=== PATIENT | male | born 1930 | race Caucasian/White ===

== ENCOUNTER 2017-06-21 16:59 | Emergency (ER) | payer MEDICARE, OTHER ==
[~2017-06-21 16:59] MED LIST: BRIM5DRO10 BOTH_EYES; CARV12.52 PO; CELE-67 PO; CLOB50SO TP; CREST10T PO; FUR20 PO; LEVO75TA4 PO; LISI10TA PO; MAGN400T4 PO; OMEP40CA36 PO; PREG200C PO
[2017-06-21 17:24] VITALS: BP 144/65; PULSE 81; RESP 14; O2SAT 92
--- NOTE | 2017-06-21 17:38 | DRSVH ---
PROCEDURE: X-RAY CHEST ONE VIEW, PORTABLE ([id number]) INDICATIONS: cp TECHNIQUE: One view of the chest was acquired. COMPARISON: [facility], CR, XR CHEST 1VW (PORTABLE), 09/26/2016, 11:41. [facility], CR, XR CHEST 2VW, 10/27/2015, 9:17. FINDINGS: Surgical changes and devices: Cardiac pacemaking device and dual chamber leads appear normal, previou sly present. Lungs and pleura: No pleural effusions or pneumothorax. Lungs are chronically abnormal with a mild interstitial prominence likely reflecting chronic CHF sequela. Mediastinum: Mediastinal contours appear normal. Heart size is mildly enlarged. Bones and chest wall: No suspicious bony lesions. Overlying soft tissues appear unremarkable. IMPRESSION: Stable chronic CHF pattern. Pacemaking device and dual chamber leads normal. Dictated by: Papo Davalos M.D. on 06/21/2017 at 17:36 Approved by: Papo Davalos M.D. on 06/21/2017 at 17:36
--- NOTE | 2017-06-21 17:40 | ED.REPORT ---
HPI-General Illness Date of Service Jun 21, 2017 ED Provider: Kailash Galaviz MD Patient is an 87 year old male with a history of CHF, pacemaker and hypertension who presents to the ED via EMS complaining of chest pain onset 6 hours ago. He describes the pain as sharp, located in the left side of his chest and radiating into his left arm. The pain is worse with movement. He denies cough or fever. Per the patient's daughter, the patient grabbed his chest in pain and looked pale just prior to arrival. He describes the pain as sharp and the worst pain he has experienced. The pain is worse with bending and twisting. En route, the patient was given ASA and 2 nitros by EMS, which took most of his pain away. The patient's daughter also mentions that the patient had a fall 3 nights ago and hit the left side of his chest. The patient complains of left sided neck/trapezius pain, that he attributes to the fall. Patient denies history of heart attack or CAD. Nursing Notes Stated Complaint: CHEST PAIN Chief Complaint: Chest Pain Nursing Notes Reviewed: Yes Allergies: Coded Allergies: atenolol (Verified Allergy, Mild, 06/21/17) morphine (Verified Allergy, Mild, 06/21/17) niacin (Verified Allergy, Mild, 06/21/17) Scheduled Brimonidine Tartrate (Alphagan P) 5 Ml Drops 1 GTT BOTH_EYES BID Carvedilol (Carvedilol) 12.5 Mg Tablet 6.25 MG PO QAM Carvedilol (Carvedilol) 12.5 Mg Tablet 12.5 MG PO QPM Clobetasol Propionate (Clobetasol Propionate) 50 Ml Solution 50 ML TP BID Furosemide (Furosemide) 20 Mg Tab 20 MG PO QAM Levothyroxine (Levothyroxine) 75 Mcg Tablet 75 MCG PO DAILY Lidocaine (Lidoderm) 700 Mg Adh..patch 1 PATCH TP UD Lisinopril (Lisinopril) 10 Mg Tablet 10 MG PO QPM Magnesium Oxide (Magnesium Oxide) 400 Mg Tablet 400 MG PO DAILY Omeprazole (Omeprazole) 40 Mg Capsule.dr 40 MG PO DAILY Pregabalin (Lyrica) 200 Mg Capsule 200 MG PO BID Rosuvastatin Calcium (Crestor) 10 Mg Tablet 10 MG PO HS Scheduled PRN Celecoxib (Celecoxib) 200 Mg Capsule 200 MG PO BID PRN PRN For Pain General Time Seen by MD: 17:33 Chief Complaint Chest pain Hx Obtained From: Patient, Daughter Arrived By: Ambulance Sudden in Onset?: Yes Onset Occurred: 5 - 8 hours ago Symptom Duration: Since onset Location: : Chest Quality: Painful, Sharp Radiation: : Arm left Severity: Current: Moderate Similar Sx Previous: No Past Medical History Past Medical History Notes: Ciaio Lumite Injector: Herb Romero Past Medical History hiatial hernia arthritis kidney stones Reports: Congestive heart failure, Diabetes mellitus, Hyperlipidemia, Hypertension Past Surgical History cardiac stent knee and L hip replacement Gallbladder removal Reports: Appendectomy Reports: Pacemaker insertion Smoking History Former Smoker Social History Alcohol Use: Denies alcohol use Other Social History: Good social support Ambulatory Status Independent Review of Systems Full Review of Systems Constitutional: Denies: Fever Respiratory: Reports: Shortness of breath, Denies: Non-productive cough Cardiovascular: Reports: Chest pain Musculoskeletal: Reports: Extremity pain, Neck pain Complete sys rev & neg: except as marked. Physical Exam Vital Signs Vital Signs Date Time Temp Pulse Resp B/P Pulse Ox O2 Delivery O2 Flow Rate FiO2 06/21/17 19:46 76 16 159/87 96 Room Air 06/21/17 18:04 76 15 138/69 98 Nasal Cannula 2 06/21/17 17:24 81 14 144/65 92 Room Air 2 Initial VS: Reviewed General/Constitutional: Awake, Alert hard of hearing but answering questions appropriately Head / Eyes: Atraumatic, Normocephalic, PERRL, EOMI ENT: Atraumatic, Airway patent, Mucous membranes moist Neck: Atraumatic, Supple, Non-tender Respiratory / Chest: Atraumatic, Breath sounds NL, Breath sounds = bilat, No respiratory distress pacemaker in the left anterior chest wall, well healed overlying scar no reproducable pain to chest wall with palpation Cardiovascular: Heart rate NL, Regular rhythm, Heart sounds NL, No gallop, No murmurs, No rubs Abdomen: Atraumatic, Soft, Non-tender, No guarding, No rebound slightly distended no rigidity Lower Extremity / Pelvis / MS: Atraumatic, No swelling, Non-tender Skin: Atraumatic, Color NL, No rash, Warm, Dry Neurologic: Oriented X3, Speech NL non lateralizing neuro exam Interpretation & Diagnostics Lab Results Interpretation Result Diagram: 06/21/17 1738 06/21/17 1738 Test 06/21/17 17:38 White Blood Count 3.9th/mm3 (3.8-10.1) Red Blood Count 4.19mil/mm3 (4.40-5.80) Hemoglobin 12.2g/dL (13.8-17.2) Hematocrit 37.0% (41.0-50.0) Mean Corpuscular Volume 88.3fL (81-100) Mean Corpuscular Hemoglobin 29.1pg (27.0-35.0) Mean Corpuscular Hemoglobin Concent 33.0% (32.0-37.0) Red Cell Distribution Width 13.9% (12.3-15.4) Platelet Count 59bil/L (150-400) Neutrophils (%) (Auto) 58.7% (40-74) Lymphocytes (%) (Auto) 8.4% (14-46) Monocytes (%) (Auto) 29.9% (4-12) Eosinophils (%) (Auto) 1.5% (0-5) Basophils (%) (Auto) 0% (0-3) Sodium Level 135mEq/L (134-144) Potassium Level 4.6mEq/L (3.5-5.2) Chloride Level 99mEq/L (97-108) Carbon Dioxide Level 24mmol/L (18-29) Blood Urea Nitrogen 20mg/dL (8-27) Creatinine 0.99mg/dL (0.76-1.27) Estimat Glomerular Filtration Rate 76mL/min (>59) Glucose Level 97mg/dL (60-99) Calcium Level 8.1mg/dL (8.5-10.1) Magnesium Level 1.8mg/dL (1.6-2.6) Total Bilirubin 0.8mg/dL (0.0-1.2) Aspartate Amino Transf (AST/SGOT) 84U/L (0-50) Alanine Aminotransferase (ALT/SGPT) 81U/L (0-44) Alkaline Phosphatase 111U/L (25-160) Troponin T < 0.010ug/L (0.0-0.011) Total Protein 6.7g/dL (6.4-8.4) Albumin 3.6g/dL (3.4-5.0) Hold Ji Top Tube Received (Received) ECG Interpretation ECG Interpretation: atrial sensed ventricular paced complexes 79bpm Interpreted by: ED physician X-Ray Chest Interpretation Chest Xray Interpretation: IMPRESSION: Stable chronic CHF pattern. Pacemaking device and dual chamber leads normal. Dictated by: Papo Davalos M.D. on 06/21/2017 at 17:36 Approved by: Papo Davalos M.D. on 06/21/2017 at 17:36 Interpretation / Wet Read by: Interpret - Radiologist Re-Eval/Medical Decision Med Decision/Clinical Course Patient is an 87 year old male with a history of CHF, pacemaker and hypertension who presents to the ED via EMS complaining of chest pain onset 6 hours ago. He describes the pain as sharp, located in the left side of his chest and radiating into his left arm. The pain is worse with movement. He denies cough or fever. Per the patient's daughter, the patient grabbed his chest in pain and looked pale just prior to arrival. He describes the pain as sharp and the worst pain he has experienced. The pain is worse with bending and twisting. En route, the patient was given ASA and 2 nitros by EMS, which took most of his pain away. The patient's daughter also mentions that the patient had a fall 3 nights ago and hit the left side of his chest. The patient complains of left sided neck/trapezius pain, that he attributes to the fall. Patient denies history of heart attack or CAD. Emergency Department the patient is afebrile, hemodynamically stable with examination as above. EKG showed atrial sensed ventricular paced complexes, 79bpm unchanged from previous EKG on 09/27/16 CXR: Obtained, reviewed and interpreted by myself shows no evidence of infiltrates, effusions or pneumothorax. Cardiac and mediastinal silhouette normal. No bony or soft tissue abnormalities. Labs: CBC showed no leukocytosis, hematocrit of 37, CMP unremarkable besides a mild hypocalcemia of 8.1, mildly elevated transaminases, negative trop Because of the patient's pain is not entirely clear. Much of his presentation is suggestive of a musculoskeletal etiology though I cannot definitively rule out acute coronary syndrome based upon single EKG and troponin. My overall suspicion for pulmonary embolism is relatively low as he is without tachypnea, respiratory complaints, major recent pulmonary embolism risk factors or physical exam findings of DVT. The patient reports feeling better though has requested something that might help with his pain. I explained that the most likely diagnosis is that his pain is musculoskeletal though we cannot rule out other more concerning causes. I explained that the most safe course of the admission to the hospital for serial troponins and additional cardiac risk stratification. There is a long discussion with the patient and his family regarding goals of care. Given his advanced age he does not desire to be admitted to the hospital and would not desire aggressive intervention. He demonstrates decisional capacity and good insight into his condition. He wishes to be discharged. He has been prescribed lidocaine patches that he may apply to his chest or back for pain. He is advised to return should he change his mind and desire more comprehensive workup or should his symptoms worsen or fail to improve. Prior to discharge follow-up and return precautions were reviewed in detail with the patient who verbalized understanding and agreement with the plan. The patient was discharged in stable condition. Time of Eval: 18:42 Re-Evaluation/Progress Note: Patient states that the pain worsened when he tried to pull himself up to sit up. Discussed that we could not definitively rule out heart vs musculoskeletal if he is not admitted. Patient would like to go home. Discussed plan for discharge. Patient understands and agrees to plan. All questions were addressed. Counseled Regarding: Diagnosis, Lab results, Need for follow-up, When/why to return to ED Discharge & Departure Primary Impression: Chest pain Chest pain type: unspecified Qualified Code: R07.9 - Chest pain, unspecified Additional Impressions: Strain of left trapezius muscle Encounter type: initial encounter Qualified Code: S46.812A - Strain of other muscles, fascia and tendons at shoulder and upper arm level, left arm, initial encounter History of pacemaker Disposition: Home Discharge Condition All VS Reviewed: Yes Condition: Stable Patient Instructions: Chest Pain (ED) Additional Instructions: Thank you for seeking care at the emergency room. It is difficult for us to make definitive diagnoses in the ED but it is possible that your pain is related to your muscles. Our primary goal today in the Emergency Department was to evaluate you for any life-threatening conditions. Your evaluation was reassuring. You can try using ice packs on your chest to help with pain and try to avoid movements that make the pain worse. You can also use the lidocaine patches. Use as directed. You should follow-up with your primary doctor in the next week. You should return to the Emergency Department immediately if you develop increased shortness of breath, chest pain, lightheadedness, weakness, if you are feeling worse, or any other concerning signs or symptoms. Thank you for letting us partake in your care today. Referrals: Chris Vzicarra MD (PCP) Katey Attestation Portions of this note were transcribed by Gabriela Smart. I, Dr. Galaviz personally performed the history, physical exam and medical decision-making; I reviewed and confirmed the accuracy of the information in the transcribed note. Signed by: Katey Quintero, 06/21/17 copies to: Chris Vizcarra MD, Beck O MD Jun 21, 2017 17:40 Fara Smart Jun 21, 2017 18:22
[2017-06-21 17:48] LABS: BASOPHILS % (AUTO) 0 % (0-3); EOSINOPHILS % (AUTO) 1.5 % (0-5); MONOCYTES % (AUTO) 29.9 % (4-12); Mean Corpuscular Hemoglobin 29.1 pg (27.0-35.0); Mean Corpuscular Volume 88.3 fL (81-100); NEUTROPHILS % (AUTO) 58.7 % (40-74); Platelet Count 59 bil/L (150-400)
[2017-06-21 18:04] VITALS: BP 138/69; PULSE 76; RESP 15; O2SAT 98
[2017-06-21 18:09] LABS: TROPONIN T < 0.010 ug/L (0.0-0.011)
[2017-06-21 18:17] LABS: Magnesium 1.8 mg/dL (1.6-2.6)
[2017-06-21] MEDS ORDERED: LIDO700A10 TP (18:51)
[2017-06-21] MEDS ORDERED: Lidocaine Topical 5% Patch TOPICAL ONE (18:55)
[2017-06-21 19:46] VITALS: BP 159/87; PULSE 76; RESP 16; O2SAT 96
== END 2017-06-21 19:49 | disposition home or self-care (01) ==
LOC: SED 16:59 → EDBD 16:59 → SED 19:49
DX: R07.89 Other chest pain (principal); S46.812A Strain of other muscles, fascia and tendons at shoulder and upper arm level, left arm, initial encounter; W18.39XA Other fall on same level, initial encounter; Y92.9 Unspecified place or not applicable; Y93.89 Activity, other specified; Y99.8 Other external cause status; I10 Essential (primary) hypertension; I50.9 Heart failure, unspecified; E11.59 Type 2 diabetes mellitus with other circulatory complications; E78.5 Hyperlipidemia, unspecified; Z95.0 Presence of cardiac pacemaker; Z95.5 Presence of coronary angioplasty implant and graft; Z87.891 Personal history of nicotine dependence; Z87.442 Personal history of urinary calculi; Z88.5 Allergy status to narcotic agent; Z88.8 Allergy status to other drugs, medicaments and biological substances